=== PATIENT | male | born 2000 | race African-American/Black ===

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

== ENCOUNTER 2021-02-15 12:51 | Emergency (ER) | payer OTHER, MEDICAID ==
[~2021-02-15] VITALS: Ht 182.9 cm; Wt 77.6 kg
[2021-02-15 12:53] VITALS: BP 123/78
[2021-02-15] MEDS ORDERED: LIDOCAINE 1% MDV 20ML VIAL SC ONE (13:30)
[2021-02-15] MEDS ORDERED: BOOSTRIX/ADACEL VACCINE (DIPHTH/PERTUSS/ACELL/TETANUS) 0.5ML SYR IM ONE (13:55)
[2021-02-15] MEDS ORDERED: ACETAMINOPHEN 325 MG TAB PO ONE (14:35)
== END 2021-02-15 14:41 | disposition home or self-care (01) ==
LOC: M ED 12:51
DX: S61.512A Laceration without foreign body of left wrist, initial encounter (principal); S61.201A Unspecified open wound of left index finger without damage to nail, initial encounter; W25.XXXA Contact with sharp glass, initial encounter; Y92.018 Other place in single-family (private) house as the place of occurrence of the external cause; F17.210 Nicotine dependence, cigarettes, uncomplicated

== ENCOUNTER 2021-02-25 11:37 | Emergency (ER) | payer OTHER, MEDICAID ==
[~2021-02-25] VITALS: Ht 185.4 cm; Wt 72.0 kg
[2021-02-25 11:38] VITALS: BP 132/76
== END 2021-02-25 12:18 | disposition home or self-care (01) ==
LOC: M ED 11:37
DX: Z48.02 Encounter for removal of sutures (principal); F17.200 Nicotine dependence, unspecified, uncomplicated

== ENCOUNTER → 2021-06-05 | Outpatient (CLI) | payer OTHER, MEDICAID | LOC: M LAB 17:40 | PROVIDERS: ATTEND Obstetrics & Gynecology Maternal & Fetal Medicine | DX: Z31.440 Encounter of male for testing for genetic disease carrier status for procreative management (principal); Z84.81 Family history of carrier of genetic disease ==

== ENCOUNTER 2022-04-30 09:23 | Emergency (ER) | payer MEDICAID, OTHER ==
[~2022-04-30] VITALS: Ht 182.9 cm; Wt 72.0 kg
[2022-04-30 11:49] LABS: RSV AMPLIFICATION NEGATIVE (NEGATIVE)
[2022-04-30] MEDS ORDERED: AMOX875T2 PO (12:08)
[2022-04-30] MEDS ORDERED: CLAR10CA3 PO (12:08)
[2022-04-30] MEDS ORDERED: FLON1SPR NARES (12:08)
[2022-04-30 12:16] VITALS: BP 131/79
== END 2022-04-30 12:18 | disposition home or self-care (01) ==
LOC: M ED 09:23
DX: J32.0 Chronic maxillary sinusitis (principal); F90.9 Attention-deficit hyperactivity disorder, unspecified type; F15.10 Other stimulant abuse, uncomplicated; Z77.098 Contact with and (suspected) exposure to other hazardous, chiefly nonmedicinal, chemicals

== ENCOUNTER 2022-06-07 15:52 | Emergency (ER) | payer MEDICAID ==
[~2022-06-07] VITALS: Ht 182.9 cm; Wt 75.1 kg
[~2022-06-07 15:52] MED LIST: AMOX875T2 PO; CLAR10CA3 PO; FLON1SPR NARES
[2022-06-07 15:53] VITALS: BP 127/68
== END 2022-06-07 19:14 | disposition left against medical advice (07) ==
LOC: M ED 15:52
DX: Z53.29 Procedure and treatment not carried out because of patient's decision for other reasons (principal)

== ENCOUNTER 2024-12-04 05:28 | Emergency (ER) | payer MEDICAID, SELFPAY ==
[~2024-12-04] VITALS: Ht 182.9 cm; Wt 75.9 kg
[2024-12-04 05:30] VITALS: BP 156/98; TEMP 97.8; O2SAT 100
== END 2024-12-04 09:08 | disposition left against medical advice (07) ==
LOC: M ED 05:28
DX: Z53.21 Procedure and treatment not carried out due to patient leaving prior to being seen by health care provider (principal)

== ENCOUNTER → 2025-01-06 | Outpatient (CLI) | payer MEDICAID | LOC: M OUTALCOH 08:44 | PROVIDERS: ATTEND Psychiatry & Neurology Psychiatry | DX: F12.10 Cannabis abuse, uncomplicated (principal); F17.200 Nicotine dependence, unspecified, uncomplicated ==

== ENCOUNTER 2025-01-13 08:42 | Outpatient (RCR) | payer MEDICAID | END 2025-02-10 | LOC: M OUTALCOH 08:42 | PROVIDERS: ATTEND Psychiatry & Neurology Psychiatry | DX: F12.10 Cannabis abuse, uncomplicated (principal); F17.200 Nicotine dependence, unspecified, uncomplicated ==